=== PATIENT | female | born 1940 | race Caucasian/White ===

== ENCOUNTER 2023-01-24 10:57 | Outpatient (CLI) | payer MEDICARE, BC | END 2023-01-24 10:58 | disposition home or self-care (01) | LOC: CSHRAD 10:57 | PROVIDERS: ATTEND Surgery | DX: S32.001D Stable burst fracture of unspecified lumbar vertebra, subsequent encounter for fracture with routine healing (principal); S32.030D Wedge compression fracture of third lumbar vertebra, subsequent encounter for fracture with routine healing; S22.080D Wedge compression fracture of T11-T12 vertebra, subsequent encounter for fracture with routine healing; S32.021D Stable burst fracture of second lumbar vertebra, subsequent encounter for fracture with routine healing | CPT/HCPCS: 72100 ==